=== PATIENT | female | born 1970 | race Caucasian/White ===

== ENCOUNTER 2017-08-04 16:05 | Inpatient (IN) ==
[2017-08-04 16:55] LABS: Bilirubin,Urine Negative (Negative); Blood,Urine Moderate (Negative); Clarity,Urine Turbid (Clear); Color,Urine Yellow (Yellow); Glucose,Urine (UA) >=1000 mg/dL (Normal); Ketones,Urine Trace mg/dL (Negative); Leukocyte Esterase,Urine Moderate (Negative); Nitrite,Urine Positive (Negative); Protein,Urine 30 mg/dL (Neg-Trace); Specific Gravity,Urine > 1.030 (1.010-1.025); Urobilinogen,Urine Normal (Normal)
[2017-08-04 16:57] LABS: Bacteria,Urine Many per hpf (None-Few); Hyaline Casts,Urine None Seen per lpf (None-Few); RBC,Urine 15-30 per hpf (0-3); Squamous Epithelial Cell,Urine Moderate per lpf (None-Few); WBC,Urine TNTC per hpf (0-3)
[2017-08-04 18:35] LABS: Basophils # 0.1 K/mcL (0.0-0.2); Basophils % 0.9 %; Eosinophils # 0.2 K/mcL (0.0-0.6); Eosinophils % 2.3 %; Hematocrit 44.4 % (35.3-44.9); Hemoglobin 15.3 g/dL (11.5-15.4); Immature Granulocytes % 0.3 % (0-4); Lymphocytes # 1.9 K/mcL (0.6-4.6); Lymphocytes % 20.9 %; Mean Corpuscular HGB Conc 34.5 g/dL (31.6-35.5); Mean Corpuscular Hemoglobin 29.8 pg (28.0-33.3); Mean Corpuscular Volume 86.5 fL (83.0-100.0); Mean Platelet Volume 9.8 fL (9.4-12.4); Monocytes # 0.5 K/mcL (0.0-1.3); Monocytes % 5.6 %; Neutrophils # 6.5 K/mcL (1.6-8.9); Platelet Count 218 K/mcL (140-400); Red Blood Count 5.13 M/mcL (3.82-4.97); Red Cell Distribution Width 12.2 % (11.5-14.5)
[2017-08-04 18:49] LABS: Alanine Aminotransferase 194 Units/L (0-55); Albumin 3.5 g/dL (3.5-5.0); Albumin/Globulin Ratio 0.7 (1.1-2.2); Alkaline Phosphatase 177 Units/L (38-126); Amylase 27 Units/L (25-125); Aspartate Amino Transferase 164 Units/L (5-34); BUN/Creatinine Ratio 15 (6-26); Bilirubin,Direct 0.3 mg/dL (0.0-0.5); Bilirubin,Indirect 0.3 mg/dL (0.0-1.2); Bilirubin,Total 0.6 mg/dL (0.2-1.2); Blood Urea Nitrogen 15 mg/dL (7-20); Calcium 10.1 mg/dL (8.6-10.8); Carbon Dioxide 24 mEq/L (19-29); Chloride 100 mEq/L (98-109); Glucose 334 mg/dL (70-99); Lipase 31 Units/L (8-78); Osmolality,Calculated 296 (280-300); Sodium 136 mEq/L (136-145); Total Protein 8.5 g/dL (6.0-8.3); eGFR For African Americans > 60 (> 60); eGFR For Non-African Americans 58 (> 60)
[2017-08-04] MEDS ORDERED: *HR* HYDROmorphone (PF) 1 MG/ML SYRINGE IVP ONE (19:16)
[2017-08-04] MEDS ORDERED: Ondansetron 4 MG/2 ML VIAL IVP ONE (19:16)
--- NOTE | 2017-08-04 19:34 | Emergency Department Note ---
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 Qualified Code(s ): E13.65 - Other specified diabetes mellitus with hyperglycemia Disposition: Admitted As Inpatient Condition: Fair Referrals: Susannah Chapman CNP [Primary Care Provider] - Forms: ED Satisfaction Letter, Work/School Release Time of Disposition: 21:02 Abdominal Pain HPI - General Chief Complaint: ED Abdominal Pain Stated Complaint: Abdominal pain, right flank pain Time Seen by Provider: 08/04/17 19:11 Source: patient Nursing Notes Reviewed: Yes Vital Signs Reviewed: Yes - History of Present Illness HPI Narrative: Presents with dysuria and urinary frequency for the last 3 or 4 days and then today developed sudden onset of burning right flank pain radiating to the right lower quadrant and she denies any fevers or vomiting or confusion. No vaginal bleeding or discharge. No blood in the urine or stool. Social history: No smoking or alcohol Pain Scale: 10 - Related Data Previous Rx's Medication Instructions Recorded predniSONE [PredniSONE] 40 mg PO DAILY #10 tablet 05/30/16 Allergies Allergy/AdvReac Type Severity Reaction Status Date / Time No Known Allergies Allergy Verified 05/30/16 20:30 Review of Systems: Constitutional: No fever Vision: No blurred vision ENT: No rhinorrhea Respiratory: No cough Allergic: No allergies : No blood in urine GI: No blood in stool Hematologic: No bruising Dermatologic: No skin rash Musculoskeletal: No pain in the extremities Neuro: No numbness of the extremities Abdominal Pain PMH - Past Medical History Medical history: Reports: diabetes Female Surgical History: Reports: appendectomy, cholecystectomy 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 EYES: PERRL, no scleral icterus. NOSE: The nose is normal in appearance without rhinorrhea RESP: Normal chest excursion with respiration; breath sounds clear and equal bilaterally; no wheezes, rhonchi, or rales CARD: Regular rhythm, without murmurs, rub or gallop ABD: Non-distended; non-tender, soft,without rigidity, rebound or guarding back: Normal appearance, does have some right CVA tenderness, none on the left SKIN: Normal for age and race; warm and dry; no apparent lesions - General Limitations: no limitations General appearance: alert, in no apparent distress Course Vital Signs Temperature 98.4 F 08/04/17 16:32 Pulse Rate 91 08/04/17 16:32 Respiratory Rate 20 08/04/17 16:32 Blood Pressure 147/97 08/04/17 16:32 O2 Sat by Pulse Oximetry 96 08/04/17 16:32 Temperature 98.4 F 08/04/17 16:32 Pulse Rate 96 08/04/17 20:25 Respiratory Rate 16 08/04/17 19:34 Blood Pressure 143/92 08/04/17 20:25 O2 Sat by Pulse Oximetry 94 08/04/17 20:25 Oxygen Delivery Oxygen Delivery Room Air Abdominal Pain - MDM Narrative Medical decision making narrative: I did review the patient's initial labs, CT scan is pending, IV fluids and pain medicine is ordered. 1944 I did review the patient's test results as well as the CT scan showing hydronephrosis but no evidence of stone. I did speak with Dr. Goodman from urology who agrees with IV antibiotics and the patient has already been started on Rocephin 2 g IV and I also spoke with the hospitalist who accepted the patient for admission we did discuss the patient's test results and radiology results and clinical presentation. Patient will be admitted overnight and watched closely. She does have diabetes with some hyperglycemia. 2100 - Medical Records Medical records reviewed: Yes I reviewed the patient's medical records. - Lab Data Lab results reviewed: Yes I reviewed the patient's lab results. Result diagrams: 08/04/17 18:21 08/04/17 18:21 Lab Results 08/04/17 08/04/17 08/04/17 Range/Units 16:44 18:21 18:21 WBC 9.3 (4.3-11.1) K/mcL RBC 5.13 H (3.82-4.97) M/mcL Hgb 15.3 (11.5-15.4) g/dL Hct 44.4 (35.3-44.9) % MCV 86.5 (83.0-100.0) fL MCH 29.8 (28.0-33.3) pg MCHC 34.5 (31.6-35.5) g/dL RDW 12.2 (11.5-14.5) % Plt Count 218 (140-400) K/mcL MPV 9.8 (9.4-12.4) fL Immature Gran % 0.3 (0-4) % Seg Neutrophils % 70.0 % Lymphocytes % 20.9 % Monocytes % 5.6 % Eosinophils % 2.3 % Basophils % 0.9 % Neutrophils # 6.5 (1.6-8.9) K/mcL Lymphocytes # 1.9 (0.6-4.6) K/mcL Monocytes # 0.5 (0.0-1.3) K/mcL Eosinophils # 0.2 (0.0-0.6) K/mcL Basophils # 0.1 (0.0-0.2) K/mcL Sodium 136 (136-145) mEq/L Potassium 4.0 (3.5-4.5) mEq/L Chloride 100 (98-109) mEq/L Carbon Dioxide 24 (19-29) mEq/L BUN 15 (7-20) mg/dL Creatinine 1.03 (0.57-1.11) mg/dL Est GFR ( Amer) > 60 (> 60) Est GFR (Non-Af Amer) 58 L (> 60) BUN/Creatinine Ratio 15 (6-26) Glucose 334 H (70-99) mg/dL Calculated Osmolality 296 (280-300) Lactic Acid (0.5-2.2) mmol/L Calcium 10.1 (8.6-10.8) mg/dL Total Bilirubin 0.6 (0.2-1.2) mg/dL Direct Bilirubin 0.3 (0.0-0.5) mg/dL Indirect Bilirubin 0.3 (0.0-1.2) mg/dL AST 164 H (5-34) Units/L ALT 194 H (0-55) Units/L Alkaline Phosphatase 177 H (38-126) Units/L Serum Total Protein 8.5 H (6.0-8.3) g/dL Albumin 3.5 (3.5-5.0) g/dL Globulin 5.0 H (2.4-3.5) g/dL Albumin/Globulin Ratio 0.7 L (1.1-2.2) Amylase 27 (25-125) Units/L Lipase 31 (8-78) Units/L Urine Color Yellow (Yellow) Urine Clarity Turbid A (Clear) Urine pH 6.0 (5.0-8.0) pH Units Ur Specific [place] > 1.030 H (1.010-1.025) Urine Protein 30 H (Neg-Trace) mg/dL Urine Glucose (UA) >=1000 H (Normal) mg/dL Urine Ketones Trace H (Negative) mg/dL Urine Blood Moderate H (Negative) Urine Nitrite Positive A (Negative) Urine Bilirubin Negative (Negative) Urine Urobilinogen Normal (Normal) mg/dL Ur Leukocyte Esterase Moderate H (Negative) Urine Microscopic RBC 15-30 H (0-3) per hpf Urine Microscopic WBC TNTC H (0-3) per hpf Ur Squamous Epith Cells Moderate H (None-Few) per lpf Urine Bacteria Many H (None-Few) per hpf Hyaline Casts None Seen (None-Few) per lpf Ur Culture Indicated? YES A (NO) 08/04/17 Range/Units 19:36 WBC (4.3-11.1) K/mcL RBC (3.82-4.97) M/mcL Hgb (11.5-15.4) g/dL Hct (35.3-44.9) % MCV (83.0-100.0) fL MCH (28.0-33.3) pg MCHC (31.6-35.5) g/dL RDW (11.5-14.5) % Plt Count (140-400) K/mcL MPV (9.4-12.4) fL Immature Gran % (0-4) % Seg Neutrophils % % Lymphocytes % % Monocytes % % Eosinophils % % Basophils % % Neutrophils # (1.6-8.9) K/mcL Lymphocytes # (0.6-4.6) K/mcL Monocytes # (0.0-1.3) K/mcL Eosinophils # (0.0-0.6) K/mcL Basophils # (0.0-0.2) K/mcL Sodium (136-145) mEq/L Potassium (3.5-4.5) mEq/L Chloride (98-109) mEq/L Carbon Dioxide (19-29) mEq/L BUN (7-20) mg/dL Creatinine (0.57-1.11) mg/dL Est GFR ( Amer) (> 60) Est GFR (Non-Af Amer) (> 60) BUN/Creatinine Ratio (6-26) Glucose (70-99) mg/dL Calculated Osmolality (280-300) Lactic Acid 1.4 (0.5-2.2) mmol/L Calcium (8.6-10.8) mg/dL Total Bilirubin (0.2-1.2) mg/dL Direct Bilirubin (0.0-0.5) mg/dL Indirect Bilirubin (0.0-1.2) mg/dL AST (5-34) Units/L ALT (0-55) Units/L Alkaline Phosphatase (38-126) Units/L Serum Total Protein (6.0-8.3) g/dL Albumin (3.5-5.0) g/dL Globulin (2.4-3.5) g/dL Albumin/Globulin Ratio (1.1-2.2) Amylase (25-125) Units/L Lipase (8-78) Units/L Urine Color (Yellow) Urine Clarity (Clear) Urine pH (5.0-8.0) pH Units Ur Specific [place] (1.010-1.025) Urine Protein (Neg-Trace) mg/dL Urine Glucose (UA) (Normal) mg/dL Urine Ketones (Negative) mg/dL Urine Blood (Negative) Urine Nitrite (Negative) Urine Bilirubin (Negative) Urine Urobilinogen (Normal) mg/dL Ur Leukocyte Esterase (Negative) Urine Microscopic RBC (0-3) per hpf Urine Microscopic WBC (0-3) per hpf Ur Squamous Epith Cells (None-Few) per lpf Urine Bacteria (None-Few) per hpf Hyaline Casts (None-Few) per lpf Ur Culture Indicated? (NO) - Radiology Data Radiology results reviewed: Yes I reviewed the patient's radiology results.
[2017-08-04] MEDS ORDERED: cefTRIAXone 2,000 MG in Water for inj. (sterile) 20 ML IVP ONE (22:00)
[2017-08-05] MEDS ORDERED: *HR* Dextrose 50 % in Water (Syg) 50 ML SYRINGE IVP PRN (00:58)
[2017-08-05] MEDS ORDERED: Dextrose Gel 15 GM PO PRN ×2 (00:58)
[2017-08-05] MEDS ORDERED: D5% in Water 1,000 ML IVC PRN (00:58)
[2017-08-05] MEDS: 0.9 % Sodium Chloride 1,000 ML IVC SCH ×2 (01:21→09:56)
[2017-08-05] MEDS: *HR* Morphine 2 MG/ML SYRINGE IVP PRN ×2 (01:24→05:26)
[2017-08-05] MEDS: Insulin LISPRO 300 UNITS/3 ML VIAL SQ SCH ×5 (01:34→21:57)
[2017-08-05] MEDS ORDERED: Ondansetron 4 MG/2 ML VIAL IVP PRN (02:35)
[2017-08-05] MEDS ORDERED: *HR* HYDROcodone/Acet 5/325 mg TABLET PO PRN (02:35)
[2017-08-05] MEDS ORDERED: Naloxone 0.4 MG/ML INJ IVP PRN (02:35)
--- NOTE | 2017-08-05 02:46 | Internal Med History&Physical ---
<John Willson - Last Filed: 08/05/17 04:14> Date of Encounter: 08/05/17 Time of Encounter: 02:41 Assessment and Plan (1) Complicated UTI (urinary tract infection) Current visit: Yes Status: Acute - Complaints of dysuria, urinary frequency without hematuria. - UA showing glucose, RBCs, nitrites, leukocyte esterase. - Complicated given uncontrolled DM2, hydronephrosis seen on CT. Periureteral stranding present. - Likely represents a recently passed stone with pyelonephritis. - Urine and blood Culture pending. - Given 2g rocephin in ED, will continue rocephin 1 g q12 hours - Afebrile, no WBC. (2) Hydronephrosis Current visit: Yes Status: Acute - CT scan in ED showing mild right hydronephrosis with mild hydroureter. No evidence of stone on CT - Evidence of recently passed stone on CT. No evidence of pyelonephritis - Urology consulted in ED, will see in AM - IVF running, zofran, pain control. Qualifiers: Hydronephrosis type: with other ureteral stricture Qualified Code(s): N13.1 - Hydronephrosis with ureteral stricture, not elsewhere classified (3) Transaminitis Current visit: Yes Status: Acute - Elevated LFTs, last admission in January wnl. - Possible etiologies due to fatty liver disease, hepatitis, monet moore. - RUQ US pending. test pending. Hepatitis panel. (4) Diabetes mellitus with hyperglycemia Current visit: Yes Status: Acute - Uncontrolled BS, medication non compliance per pt. - BS in ED running 200-300 - A1c pending. Most recent 6.2% in January 2017 - Basal and SSI. Qualifiers: Diabetes mellitus type: type 2 Diabetes mellitus halfway insulin use: without halfway use Qualified Code(s): E11.65 - Type 2 diabetes mellitus with hyperglycemia (5) DVT prophylaxis Current visit: Yes Status: Acute - Heparin 5000 units q12 Internal Medicine - H&P: HPI Chief complaint: right flank pain Admitted From: Emergency Dept Plans for Post Hospital Care: Home History of present illness: Ms. Miranda is a 46 year old female with a PMhx of DM2 presents to ED with a complaint of right sided flank pain since yesterday morning. She states that she awoke with a sudden onset, sharp pain that radiates to her right groin and leg. She states that she has not experienced this in the past. She also complains of dysuria with "fire when she pees" for the previous 5 days as well as frequency and mild nausea. She denies urinary urgency, incontinence, and hematuria. She also denies any symptoms of fevers, chils, vomiting, CP, SOB. She is a type 2 diabetic and states that she could not tolerate her metformin and has not been able to see her PCP to start a new medication due to loss of insurance. She has not taken anything for BS control in some time, she states. In the ED, VS unremarkable. Labs show no white count, elevated glucose in 2-300s , transaminitis, and UA showed evidence of UTI. CT abdomen done in ED showed mild hydronephrosis and hydroureter without obvious stone. Signs suggestive of recent stone passing possible. Past Med Surg Social Fam HX - Past Medical History Medical history: diabetes Psychiatric history: no psych history - Past Surgical History Surgical History: appendectomy, cholecystectomy - Social History Smoking Status: Never smoker Smokeless Tobacco Status: No Alcohol use: none Drug use: none - Family History Father Hx Family Cardiac Disorders: Yes (HYPERTENSION.) Internal Medicine - H&P: Meds Acetaminophen [Tylenol] 500 mg PO Q6H PRN 08/04/17 [History] DiphenhydraMINE [Benadryl] 25 mg PO Q6HR PRN 08/04/17 [History] Ranitidine HCl [Heartburn Relief] 150 mg PO DAILY 08/04/17 [History] 3 Allergy/AdvReac Type Severity Reaction Status Date / Time No Known Allergies Allergy Verified 05/30/16 20:30 All Systems PM: A 10-system review of systems was performed and is negative for pertinent findings except as documented above in the HPI. - Constitutional Constitutional: no chills, no fatigue, no fever(s), no lethargy, no malaise - Cardiovascular Cardiovascular ROS IM: no chest pain, no diaphoresis, no dyspnea, no dyspnea on exertion, no edema - Respiratory Respiratory: no cough, no dyspnea, no dyspnea on exertion - Gastrointestinal Gastrointestinal: no abdominal pain, no constipation, no diarrhea, no nausea, no vomiting - Genitourinary Genitourinary: dysuria, flank pain, urinary frequency, no difficulty urinating, no hematuria, no urinary hesitancy, no urinary urgency - Musculoskeletal Musculoskeletal ROS IM: no numbness, no tingling - Neurological Neurological ROS: no numbness, no tingling, no weakness - Constitutional Vitals: Temp Pulse Resp BP Pulse Ox 98.2 F 95 16 139/93 95 08/04/17 21:39 08/04/17 21:39 08/04/17 21:39 08/04/17 21:39 08/04/17 21:39 Exam: Gen.: Vitals noted. No acute distress. AAOx3. Morbidly obese. HEENT: PERRL/EOMI, oropharynx clear, Normocephalic, atraumatic, MMM Neck: Supple. No adenopathy. Cardiac: RRR, no murmur, +S1/S2 Pulmonary: CTA bilaterally, no wheezes, rales or rhonchi, equal chest expansion Abdomen: soft, tender to palpation in RUQ, RLQ, suprapubic region. BS noted, no guarding Back: Tender to palpation on right CVA. MSK: ROM intact, no joint swelling noted Extremities: no BLE edema, nontender calf, no cyanosis or clubbing Neuro: A&Ox3, moves all extremities, no focal deficits Psych: Appropriate mood and behavior Internal Med - H&P Results - Labs CBC & Chem 7: 08/05/17 03:47 08/04/17 18:21 <Robert Childs - Last Filed: 08/05/17 05:52> Date of Encounter: 08/05/17 Time of Encounter: 05:41 - Constitutional Constitutional: no chills, no fever(s) - EENT Eyes: no blurry vision, no change in vision Ears: no ear pain, no tinnitus Nose, mouth and throat: no nasal congestion, no sinus pressure, no sore throat - Cardiovascular Cardiovascular ROS IM: no chest pain, no dyspnea - Respiratory Respiratory: no cough, no chest congestion - Gastrointestinal Gastrointestinal: abdominal pain (RUQ), no diarrhea, no nausea, no vomiting - Genitourinary Genitourinary: dysuria, flank pain, urinary frequency, no hematuria, no sexual dysfunction, no vaginal discharge, no vaginal dryness, no vaginal odor - Musculoskeletal Musculoskeletal ROS IM: no arthralgias, no back pain - Integumentary Integumentary IM: no rash, no jaundice - Neurological Neurological ROS: no focal weakness, no headache(s) - Psychiatric Psychiatric: no anxiety, no depression - Endocrine Endocrine IM: no polydipsia, no polyuria - Hematologic/Lymphatic Hematologic/Lymphatic: no easy bruising, no lymphadenopathy - Allergic/Immunologic Allergic/Immunologic: GI upset with certain foods - Constitutional Vitals: Temp Pulse Resp BP Pulse Ox 98.5 F 105 16 132/82 93 08/05/17 03:26 08/05/17 03:26 08/05/17 03:26 08/05/17 03:26 08/05/17 03:26 General appearance: Present: cooperative, A&O X 3, pleasant, no acute distress - Eye Eye exam: Present: PERRL. Absent: scleral icterus - ENT ENT exam: Present: mucous membranes dry, normal exam - Neck Neck exam general surgery: Present: full ROM, supple. Absent: lymphadenopathy - Respiratory Respiratory exam: Present: CTAB. Absent: rales, rhonchi, wheezes - Cardiovascular Cardiovascular exam: Present: RRR, +S1, +S2. Absent: diastolic murmur, systolic murmur - GI/Abdominal GI/Abdominal exam: Present: normal bowel sounds, tenderness (RUQ -- mild to moderate). Absent: guarding, hepatomegaly, rebound, splenomegaly - Extremities Exam Extremities exam: Present: warm. Absent: calf tenderness, joint swelling, tenderness - Back Exam Back exam: Present: CVA tenderness (R), normal inspection. Absent: CVA tenderness (L) - Neurological Exam Neurological exam: Present: alert, CN II-XII intact, oriented X3, no focal deficits - Psychiatric Psychiatric exam: Present: normal affect, normal mood - Skin Skin exam: Present: warm. Absent: dry, rash Internal Med - H&P Results - Labs CBC & Chem 7: 08/05/17 03:47 08/05/17 04:36 Labs: Short CBC 08/05/17 Range/Units 03:47 WBC 11.3 H (4.3-11.1) K/mcL Hgb 13.9 (11.5-15.4) g/dL Hct 39.7 (35.3-44.9) % Plt Count 190 (140-400) K/mcL Neutrophils # 8.4 (1.6-8.9) K/mcL BMP 08/05/17 08/05/17 03:47 04:36 Sodium 137 138 Potassium 4.3 4.1 Chloride 103 102 Carbon Dioxide 23 25 BUN 9 10 Creatinine 0.88 0.98 Glucose 232 H 222 H Calcium 9.1 9.4 Liver Function 08/05/17 Range/Units 04:36 Total Bilirubin 0.6 (0.2-1.2) mg/dL AST 104 H (5-34) Units/L ALT 156 H (0-55) Units/L Alkaline Phosphatase 152 H (38-126) Units/L Albumin 3.0 L (3.5-5.0) g/dL - Diagnostic Studies CT scan - abdomen Status: image reviewed by me (right hydronephrosis with stranding of ureter) - Attending Attestation I discussed the patient TANGIRNAQ, PMH, ROS, lab data, and exam findings with Dr. Willson. I then saw and examined patient independently as well. Patient admits to recurrent UTI. She's only had one kidney stone in the past. She feels better now but does complain of some right upper quadrant pain. She denies any STI's, vaginal discharge, or sexual dysfunction. She is and monogamous. She does not feel she is , but we ordered test anyway. Regarding her LFT's, I suspect it may be due to fatty liver disease from uncontrolled diabetes. She had her gallbladder removed about 7 years ago due to gall stones. She may still have some intraductal stones. Will order liver ultrasound and consider MRCP if further suspicious for biliary issues. We will trend her LFT's. Additionally, urology will follow patient in consult and help guide us in her care and needs. Other than my above comment s and noted exam findings, I agree with Dr. Willson's assessment and plan.
[2017-08-05 03:59] LABS: Basophils # 0.1 K/mcL (0.0-0.2); Basophils % 0.6 %; Eosinophils # 0.1 K/mcL (0.0-0.6); Eosinophils % 0.5 %; Hematocrit 39.7 % (35.3-44.9); Hemoglobin 13.9 g/dL (11.5-15.4); Immature Granulocytes % 0.3 % (0-4); Lymphocytes # 1.9 K/mcL (0.6-4.6); Lymphocytes % 17.2 %; Mean Corpuscular Hemoglobin 30.1 pg (28.0-33.3); Mean Corpuscular Volume 85.9 fL (83.0-100.0); Mean Platelet Volume 9.9 fL (9.4-12.4); Monocytes # 0.8 K/mcL (0.0-1.3); Monocytes % 6.6 %; Neutrophils # 8.4 K/mcL (1.6-8.9); Platelet Count 190 K/mcL (140-400); Red Blood Count 4.62 M/mcL (3.82-4.97); Red Cell Distribution Width 12.3 % (11.5-14.5); Segmented Neutrophils % 74.8 %
[2017-08-05 04:10] LABS: Hemoglobin A1C 10.2 %
[2017-08-05 04:15] LABS: BUN/Creatinine Ratio 10 (6-26); Blood Urea Nitrogen 9 mg/dL (7-20); Calcium 9.1 mg/dL (8.6-10.8); Carbon Dioxide 23 mEq/L (19-29); Chloride 103 mEq/L (98-109); Glucose 232 mg/dL (70-99); Osmolality,Calculated 290 (280-300); Potassium 4.3 mEq/L (3.5-4.5); Sodium 137 mEq/L (136-145); eGFR For African Americans > 60 (> 60); eGFR For Non-African Americans > 60 (> 60)
[2017-08-05 05:12] LABS: Alanine Aminotransferase 156 Units/L (0-55); Albumin/Globulin Ratio 0.6 (1.1-2.2); Alkaline Phosphatase 152 Units/L (38-126); Aspartate Amino Transferase 104 Units/L (5-34); BUN/Creatinine Ratio 10 (6-26); Bilirubin,Total 0.6 mg/dL (0.2-1.2); Blood Urea Nitrogen 10 mg/dL (7-20); Calcium 9.4 mg/dL (8.6-10.8); Carbon Dioxide 25 mEq/L (19-29); Chloride 102 mEq/L (98-109); Glucose 222 mg/dL (70-99); Osmolality,Calculated 292 (280-300); Potassium 4.1 mEq/L (3.5-4.5); Sodium 138 mEq/L (136-145); eGFR For African Americans > 60 (> 60); eGFR For Non-African Americans > 60 (> 60)
[2017-08-05] MEDS ORDERED: *HR* Heparin 5,000 UNIT/ML VIAL SQ SCH (06:00)
--- NOTE | 2017-08-05 08:36 | Urology - Consult Note ---
Date of Encounter: 08/05/17 Time of Encounter: 08:34 - Assessment and Plan (1) Hydronephrosis Current Visit: Yes Status: Acute Assessment and plan: 46-year-old woman with a history of right hydroureteronephrosis. There is no evidence of nephrolithiasis or ureteral stone. She has been afebrile overnight. Her heart rate and blood pressure are within normal limits. Recommend continued conservative therapy with IV antibiotic and await the results of her urine culture. I would then recommend delayed imaging to determine whether or not the hydronephrosis is resolved. If her clinical status deteriorates, then I can proceed with cystoscopy and right ureteral stent placement. The risks of this procedure were informed. She is willing to proceed with a conservative approach. Qualifiers: Hydronephrosis type: with other ureteral stricture Qualified Code(s): N13.1 - Hydronephrosis with ureteral stricture, not elsewhere classified (2) UTI (urinary tract infection) Current Visit: Yes Status: Acute Assessment and plan: Continue IV antibiotic. Await results of urine culture. Qualifiers: Urinary tract infection type: acute cystitis Hematuria presence: without hematuria Qualified Code(s): N30.00 - Acute cystitis without hematuria Urology CN:HPI Consult date: 08/05/17 Reason for consult Urology: Hydronephrosis History of present illness: 46-year-old woman presents with a one-day history of right flank pain. She also noted dysuria for about a week. The pain became more severe yesterday around 9 AM. It was located in the right flank and radiated to the right lower quadrant. She reports having a stone in the past. She denies any recent stone passage. She denies any fevers or chills. She came to the emergency department and a CT scan showed evidence of right hydroureteronephrosis to the ureterovesical junction. There is no evidence of ureteral stone. Her urine was concerning for infection and she was admitted for IV antibiotic. Today she is still having some right flank pain. She denies any fevers overnight. Her pain is improved. Past Med Surg Social Fam HX - Past Medical History Medical history: diabetes Psychiatric history: no psych history - Past Surgical History Surgical History: appendectomy, cholecystectomy - Social History Smoking Status: Never smoker Smokeless Tobacco Status: No Alcohol use: none Drug use: none - Family History Father Hx Family Cardiac Disorders: Yes (HYPERTENSION.) Medications and Allergies Acetaminophen [Tylenol] 500 mg PO Q6H PRN 08/04/17 [History] DiphenhydraMINE [Benadryl] 25 mg PO Q6HR PRN 08/04/17 [History] Ranitidine HCl [Heartburn Relief] 150 mg PO DAILY 08/04/17 [History] 3 Allergy/AdvReac Type Severity Reaction Status Date / Time No Known Allergies Allergy Verified 05/30/16 20:30 Review of Systems - Constitutional no chills, no fever(s) - EENT Nose, mouth and throat: no dizziness - Cardiovascular no chest pain - Respiratory no dyspnea - Gastrointestinal no nausea, no vomiting - Genitourinary Genitourinary: flank pain, no hematuria - Musculoskeletal no back pain - Integumentary no erythema, no rash - Neurological no weakness - Psychiatric no suicidal ideation - Hematologic/Lymphatic no easy bleeding - Allergic/Immunologic no wheezing Exam Initial Vital Signs Temp Pulse Resp BP Pulse Ox 98.4 F 91 20 147/97 96 08/04/17 16:32 08/04/17 16:32 08/04/17 16:32 08/04/17 16:32 08/04/17 16:32 - General physical appearance Present: well developed, well nourished, no distress - Eyes Absent: icteric - ENT Present: normal mucosa - Neck Present: no masses - Respiratory Present: normal respiratory effort - Abdomen Abdomen: Present: soft Urology Results - Labs 08/05/17 03:47 08/05/17 04:36 Abnormal lab results WBC 11.3 K/mcL (4.3-11.1) H 08/05/17 03:47 Glucose 222 mg/dL (70-99) H 08/05/17 04:36 POC Glucose 246 (58-89) H 08/05/17 01:31 Hemoglobin A1c 10.2 % (-5.6) H 08/05/17 03:47 AST 104 Units/L (5-34) H 08/05/17 04:36 ALT 156 Units/L (0-55) H 08/05/17 04:36 Alkaline Phosphatase 152 Units/L (38-126) H 08/05/17 04:36 Albumin 3.0 g/dL (3.5-5.0) L 08/05/17 04:36 Globulin 5.0 g/dL (2.4-3.5) H 08/05/17 04:36 Albumin/Globulin Ratio 0.6 (1.1-2.2) L 08/05/17 04:36 Urine Clarity Turbid (Clear) A 08/04/17 16:44 Ur Specific [place] > 1.030 (1.010-1.025) H 08/04/17 16:44 Urine Protein 30 mg/dL (Neg-Trace) H 08/04/17 16:44 Urine Glucose (UA) >=1000 mg/dL (Normal) H 08/04/17 16:44 Urine Ketones Trace mg/dL (Negative) H 08/04/17 16:44 Urine Blood Moderate (Negative) H 08/04/17 16:44 Urine Nitrite Positive (Negative) A 08/04/17 16:44 Ur Leukocyte Esterase Moderate (Negative) H 08/04/17 16:44 Urine Microscopic RBC 15-30 per hpf (0-3) H 08/04/17 16:44 Urine Microscopic WBC TNTC per hpf (0-3) H 08/04/17 16:44 Ur Squamous Epith Cells Moderate per lpf (None-Few) H 08/04/17 16:44 Urine Bacteria Many per hpf (None-Few) H 08/04/17 16:44 Ur Culture Indicated? YES (NO) A 08/04/17 16:44 Diabetes panel 08/05/17 08/05/17 08/05/17 Range/Units 03:47 03:47 04:36 Sodium 137 138 (136-145) mEq/L Potassium 4.3 4.1 (3.5-4.5) mEq/L Chloride 103 102 (98-109) mEq/L Carbon Dioxide 23 25 (19-29) mEq/L BUN 9 10 (7-20) mg/dL Creatinine 0.88 0.98 (0.57-1.11) mg/dL Glucose 232 H 222 H (70-99) mg/dL Hemoglobin A1c 10.2 H ( - 5.6) % Calcium 9.1 9.4 (8.6-10.8) mg/dL AST 104 H (5-34) Units/L ALT 156 H (0-55) Units/L Alkaline Phosphatase 152 H (38-126) Units/L Albumin 3.0 L (3.5-5.0) g/dL Calcium panel 08/05/17 08/05/17 Range/Units 03:47 04:36 Calcium 9.1 9.4 (8.6-10.8) mg/dL Albumin 3.0 L (3.5-5.0) g/dL Pituitary panel 08/05/17 08/05/17 Range/Units 03:47 04:36 Sodium 137 138 (136-145) mEq/L Potassium 4.3 4.1 (3.5-4.5) mEq/L Chloride 103 102 (98-109) mEq/L Carbon Dioxide 23 25 (19-29) mEq/L BUN 9 10 (7-20) mg/dL Creatinine 0.88 0.98 (0.57-1.11) mg/dL Glucose 232 H 222 H (70-99) mg/dL Calcium 9.1 9.4 (8.6-10.8) mg/dL Adrenal panel 08/05/17 08/05/17 Range/Units 03:47 04:36 Sodium 137 138 (136-145) mEq/L Potassium 4.3 4.1 (3.5-4.5) mEq/L Chloride 103 102 (98-109) mEq/L Carbon Dioxide 23 25 (19-29) mEq/L BUN 9 10 (7-20) mg/dL Creatinine 0.88 0.98 (0.57-1.11) mg/dL Glucose 232 H 222 H (70-99) mg/dL Calcium 9.1 9.4 (8.6-10.8) mg/dL Total Bilirubin 0.6 (0.2-1.2) mg/dL AST 104 H (5-34) Units/L ALT 156 H (0-55) Units/L Alkaline Phosphatase 152 H (38-126) Units/L Albumin 3.0 L (3.5-5.0) g/dL All other labs normal. - Imaging CT scan - abdomen: report reviewed, image reviewed CT scan - pelvis: report reviewed, image reviewed Consult Discharge Plan - Plan Referrals: Susannah Chapman, [employer]IC[employer] [Primary Care Provider] -
[2017-08-05] MEDS: cefTRIAXone 1,000 MG in Water for inj. (sterile) 10 ML IVP SCH ×2 (09:55→21:55)
[2017-08-05] MEDS: Acetaminophen 325 MG TABLET PO PRN ×2 (11:58→22:10)
[2017-08-05] MEDS: *HR* Heparin 5,000 UNIT/ML VIAL SQ SCH ×2 (13:16→21:56)
[2017-08-05] MEDS ORDERED: cefTRIAXone 1,000 MG in Water for inj. (sterile) 10 ML IVP SCH (21:00)
[2017-08-06 04:52] LABS: Hematocrit 44.5 % (35.3-44.9); Hemoglobin 14.8 g/dL (11.5-15.4); Mean Corpuscular HGB Conc 33.3 g/dL (31.6-35.5); Mean Corpuscular Hemoglobin 29.9 pg (28.0-33.3); Mean Corpuscular Volume 89.9 fL (83.0-100.0); Mean Platelet Volume 10.3 fL (9.4-12.4); Platelet Count 192 K/mcL (140-400); Red Blood Count 4.95 M/mcL (3.82-4.97); Red Cell Distribution Width 12.3 % (11.5-14.5)
[2017-08-06] MEDS: *HR* Heparin 5,000 UNIT/ML VIAL SQ SCH (05:05)
[2017-08-06 05:07] LABS: BUN/Creatinine Ratio 10 (6-26); Blood Urea Nitrogen 9 mg/dL (7-20); Calcium 9.9 mg/dL (8.6-10.8); Carbon Dioxide 27 mEq/L (19-29); Chloride 105 mEq/L (98-109); Glucose 183 mg/dL (70-99); Osmolality,Calculated 293 (280-300); Sodium 140 mEq/L (136-145); eGFR For African Americans > 60 (> 60); eGFR For Non-African Americans > 60 (> 60)
[2017-08-06 05:14] LABS: Potassium 4.9 mEq/L (3.5-4.5)
[2017-08-06 05:27] LABS: Hepatitis A Antibody IgM Nonreactive (Nonreactive); Hepatitis B Core IgM Nonreactive (Nonreactive); Hepatitis B Surface Antigen Nonreactive (Nonreactive); Hepatitis C Virus Antibody Nonreactive (Nonreactive)
[2017-08-06] MEDS ORDERED: *HR* GlyBURIDE 5 MG TABLET PO SCH (08:00)
[2017-08-06] MEDS: cefTRIAXone 1,000 MG in Water for inj. (sterile) 10 ML IVP SCH (08:42)
[2017-08-06] MEDS: Insulin LISPRO 300 UNITS/3 ML VIAL SQ SCH (08:43)
--- NOTE | 2017-08-06 08:47 | Urology Progress Note ---
Date of Encounter: 08/06/17 Time of Encounter: 08:45 - Assessment and Plan (1) Hydronephrosis Current Visit: Yes Status: Acute Assessment and plan: I will assess as an outpatient with repeat imaging. No further imaging required this hospital stay at this point unless her clinical condition changes. Qualifiers: Hydronephrosis type: with other ureteral stricture Qualified Code(s): N13.1 - Hydronephrosis with ureteral stricture, not elsewhere classified (2) UTI (urinary tract infection) Current Visit: Yes Status: Acute Assessment and plan: Otilia expressed desire to be discharged home today. Urine culture sensitivity is still pending. It may be reasonable to transition her to an oral antibiotic such as levofloxacin and discharge home. Alternatively, we can await final sensitivities prior to discharge. I would like to have her follow-up with me in 2 weeks in the urology clinic. Qualifiers: Urinary tract infection type: acute cystitis Hematuria presence: without hematuria Qualified Code(s): N30.00 - Acute cystitis without hematuria Progress Note Narrative: Otilia is doing well today. She says her back pain has resolved. No fevers overnight. Blood cultures were negative. Urine culture is growing out Escherichia coli. Objective Initial Vital Signs Temp Pulse Resp BP Pulse Ox 98.4 F 91 20 147/97 96 08/04/17 16:32 08/04/17 16:32 08/04/17 16:32 08/04/17 16:32 08/04/17 16:32 - General physical appearance Present: well developed, well nourished, no distress - Respiratory Present: normal respiratory effort - Abdomen Present: soft - Labs 08/06/17 04:10 08/06/17 04:10 Diabetes panel 08/06/17 Range/Units 04:10 Sodium 140 (136-145) mEq/L Potassium 4.9 H (3.5-4.5) mEq/L Chloride 105 (98-109) mEq/L Carbon Dioxide 27 (19-29) mEq/L BUN 9 (7-20) mg/dL Creatinine 0.92 (0.57-1.11) mg/dL Glucose 183 H (70-99) mg/dL Calcium 9.9 (8.6-10.8) mg/dL Calcium panel 08/06/17 Range/Units 04:10 Calcium 9.9 (8.6-10.8) mg/dL Pituitary panel 08/06/17 Range/Units 04:10 Sodium 140 (136-145) mEq/L Potassium 4.9 H (3.5-4.5) mEq/L Chloride 105 (98-109) mEq/L Carbon Dioxide 27 (19-29) mEq/L BUN 9 (7-20) mg/dL Creatinine 0.92 (0.57-1.11) mg/dL Glucose 183 H (70-99) mg/dL Calcium 9.9 (8.6-10.8) mg/dL Adrenal panel 08/06/17 Range/Units 04:10 Sodium 140 (136-145) mEq/L Potassium 4.9 H (3.5-4.5) mEq/L Chloride 105 (98-109) mEq/L Carbon Dioxide 27 (19-29) mEq/L BUN 9 (7-20) mg/dL Creatinine 0.92 (0.57-1.11) mg/dL Glucose 183 H (70-99) mg/dL Calcium 9.9 (8.6-10.8) mg/dL Consult Discharge Plan - Plan Referrals: Susannah Chapman, DEZ [Primary Care Provider] - 08/09/17 11:00 am
--- NOTE | 2017-08-06 09:22 | Discharge Summary ---
Date of Encounter: 08/06/17 Time of Encounter: 09:22 - Discharge Diagnosis (1) Complicated UTI (urinary tract infection) Priority: Primary Status: Acute Comments: Otilia Miranda is a 46-year-old female with past medical history uncontrolled diabetes and morbid obesity who presented to [facility] on with complaints of dysuria and urinary frequency. She was found to have hydronephrosis and a UTI. She was admitted for IV ATB and Urology evaluation. 1. Complicated UTI: symptomatic with dysuria and urinary frequency. UA indicative of UTI. IV Rocephin started in ED. Complicated with uncontrolled diabetes and hydronephrosis. Urine culture with Escherichia coli, sensitivity pending at discharge. Rocephin changed to Levaquin. Follow urine sensitivity and change ATB if needed 2. Hydronephrosis: ABD CT with mild right hydronephrosis and hydroureter with mild periureteral stranding, possibly representing a recently passed stone. Evaluated by Urology who recommended conservative management with antibiotics. No further imaging required this time. Will need to follow up with Urology in 2 weeks. 3. Fatty liver disease: hx cholecystectomy. LFTs elevated, baseline normal. Hepatitis panel negative. Liver ultrasound with evidence of fatty liver. Patient denied abdominal pain. She declined ERCP to assess for possible stone. LFTs trending down at discharge. Recommended repeat CMP with PCP as soon as possible 4. Uncontrolled diabetes: Hgb A1c 10.2%. Currently not being treated with insulin or oral hypoglycemics. Patient was on metformin but stopped due to nausea vomiting diarrhea. Patient states she cannot see PCP until insurance is effective in approximately 6 weeks. Glyburide started. Strongly encouraged daily monitoring of blood sugar along with dietary and medication compliance. Patient advised to monitor blood sugar daily. Follow-up with PCP as soon as able 5. Morbid obesity: BMI 54. Lifestyle modifications encouraged. 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 Qualified Code(s): E11.65 - Type 2 diabetes mellitus with hyperglycemia (3) Hydronephrosis Priority: Primary Status: Acute Qualifiers: Hydronephrosis type: with other ureteral stricture Qualified Code(s): N13.1 - Hydronephrosis with ureteral stricture, not elsewhere classified (4) Transaminitis Priority: Primary Status: Acute - Discharge Medications Prescriptions: glyBURIDE [GlyBURIDE] 5 mg PO BIDWM #60 tablet levoFLOXacin [Levaquin] 750 mg PO DAILY #7 tablet Home Medications: Acetaminophen [Tylenol] 500 mg PO Q6H PRN 08/04/17 [History] DiphenhydraMINE [Benadryl] 25 mg PO Q6HR PRN 08/04/17 [History] Ranitidine HCl [Heartburn Relief] 150 mg PO DAILY 08/04/17 [History] glyBURIDE [GlyBURIDE] 5 mg PO BIDWM #60 tablet 08/06/17 [Rx] levoFLOXacin [Levaquin] 750 mg PO DAILY #7 tablet 08/06/17 [Rx] Allergies/Adverse Reactions: 3 Allergy/AdvReac Type Severity Reaction Status Date / Time No Known Allergies Allergy Verified 05/30/16 20:30 Date of admission: 08/05/17 08:52 Primary care physician: Susannah Chapman CNP Discharging clinician: Marsha Silvestre Anticipated date of discharge: 08/06/17 - Patient Status Disposition: Home, Self-Care Condition: Good Functional capacity at discharge: independent ambulation Overall status at discharge: patient is back to baseline - Discharge Instructions Instructions: Glyburide (By mouth), Levofloxacin (By mouth), Urinary Tract Infection in Women (DC), Heart Healthy Diet (DC), Diabetic Hypoglycemia (DC), Diabetes Mellitus Type 2 in Adults (DC), Meal Planning with Diabetes Exchanges ( GEN) Follow Up With: Susannah Chapman CNP [Primary Care Provider] - 08/09/17 11:00 am - Diet and Activity Activity: resume usual activities as tolerated Diet: diabetic diet Interval History: Seen and examined at bedside, patient says she feels better and wants to go home. She has a PCP but is not able for another 6 weeks due to insurance reasons. We discussed her elevated LFTs and she did have some ABD pain on arrival. She is declined further testing at this time. Says she will follow-up with PCP as soon as her insurance is effective. She has no complaints other than wanting to go home. Hospital course: See assessment and plan for hospital course - Time Spent with Patient Total time spent providing and/or coordinating discharge services: Greater than 30 minutes (48 minutes spent on discharge) - Constitutional Vitals: Temp Pulse Resp BP Pulse Ox 97.8 F 94 14 125/86 95 08/06/17 07:16 08/06/17 07:16 08/06/17 07:16 08/06/17 07:16 08/06/17 07:16 General appearance: Present: cooperative, A&O X 3, pleasant, no acute distress - Head Head exam: Present: atraumatic, normocephalic - Eye Eye exam: Present: PERRL, conjuntiva pink, sclera anicteric Pupils: Present: PERRL - Neck Neck exam general surgery: Present: supple, trachea midline. Absent: lymphadenopathy - Respiratory Respiratory exam: Present: CTAB. Absent: accessory muscle use, rales, rhonchi, wheezes - Cardiovascular Cardiovascular exam: Present: RRR, +S1, +S2. Absent: diastolic murmur, gallop, rubs, systolic murmur - GI/Abdominal GI/Abdominal exam: Present: normal bowel sounds, soft, no peritoneal signs. Absent: distended, tenderness - Extremities Exam Extremities exam: Present: warm, radial pulses palpable and symmetrical. Absent : calf tenderness, cyanotic, pedal edema - Neurological Exam Neurological exam: Present: CN II-XII intact, oriented X3, no focal deficits. Absent: pronater drift, facial droop, speech deficit - Skin Skin exam: Present: dry, intact
[2017-08-06 09:55] LABS: Alanine Aminotransferase 104 Units/L (0-55); Albumin 2.8 g/dL (3.5-5.0); Albumin/Globulin Ratio 0.5 (1.1-2.2); Alkaline Phosphatase 146 Units/L (38-126); Aspartate Amino Transferase 53 Units/L (5-34); Bilirubin,Direct 0.2 mg/dL (0.0-0.5); Bilirubin,Indirect 0.4 mg/dL (0.0-1.2); Bilirubin,Total 0.6 mg/dL (0.2-1.2); Globulin 5.2 g/dL (2.4-3.5)
[2017-08-06 11:42] VITALS: BP 127/89
== END 2017-08-06 12:07 | disposition home or self-care (01) | DRG 690 ==
LOC: 3BNU 16:05 → EMEROO 16:05 → 3BNU 21:24
PROVIDERS: ADMIT Internal Medicine; ATTEND Registered Nurse